=== PATIENT | male | born 1995 | race Caucasian/White ===

== ENCOUNTER 2021-07-05 16:20 | Emergency (ER) | payer SELFPAY ==
[~2021-07-05] VITALS: Ht 190.5 cm; Wt 136.0 kg
--- NOTE | 2021-07-05 17:39 | PHYS DOC ---
Past History Past Surgical History: No Surgical History General Adult EDM: Chief Complaint: SHORTNESS OF BREATH HPI: HPI: Patient is a 25-year-old male who presents with shortness of breath, cough for the last 2 weeks. Patient states that shortness of breath is worse with exertion. Patient states that symptoms have worsened the last couple of days. Patient denies fever. Denies taking anything at home to help with symptoms. Denies medical history. Review of Systems: Review of Systems: Constitutional: Denies fever or chills Eyes: Denies change in visual acuity HENT: Denies nasal congestion or sore throat Respiratory: Reports cough and shortness of breath Cardiovascular: Denies chest pain or edema GI: Denies abdominal pain, nausea, vomiting, bloody stools or diarrhea : Denies dysuria Musculoskeletal: Denies back pain or joint pain Integument: Denies rash Neurologic: Denies headache, focal weakness or sensory changes Endocrine: Denies polyuria or polydipsia Lymphatic: Denies swollen glands Psychiatric: Denies depression or anxiety Current Medications: Current Meds: Current Medications Medications (Trade) Dose Ordered Sig/Shahzad Start Time Stop Time Status Last Admin Dose Admin Sodium Chloride 1,000 ml @ 1,000 mls/hr 1X ONCE 07/05/21 17:45 07/05/21 18:44 UNV Allergies: Allergies: Allergies Coded Allergies Type Severity Reaction Last Updated Verified No Known Drug Allergies 07/05/21 No Physical Exam: PE: Constitutional: Well developed, well nourished, no acute distress, non-toxic appearance. [] HENT: Normocephalic, atraumatic, bilateral external ears normal, oropharynx moist, no oral exudates, nose normal. [] Eyes: PERRLA, EOMI, conjunctiva normal, no discharge. [] Neck: Normal range of motion, no tenderness, supple, no stridor. [] Cardiovascular:Heart rate regular rhythm, no murmur [] Lungs & Thorax: Bilateral breath sounds clear to auscultation [] Abdomen: Bowel sounds normal, soft, no tenderness, no masses, no pulsatile masses. [] Skin: Warm, dry, no erythema, no rash. [] Back: No tenderness, no CVA tenderness. [] Extremities: No tenderness, no cyanosis, no clubbing, ROM intact, no edema. [] Neurologic: Alert and oriented X 3, normal motor function, normal sensory function, no focal deficits noted. [] Psychologic: Affect normal, judgement normal, mood normal. [] Current Patient Data: Vital Signs: Vital Signs Date Time Temp Pulse Resp B/P (MAP) Pulse Ox O2 Delivery O2 Flow Rate FiO2 07/05/21 16:40 97.2 140 16 111/89 96 Room Air EKG: EKG: [] Sinus tachycardia. Heart rate [address] Currie at 1726 Radiology/Procedures: Radiology/Procedures: []Exam: CT of chest without contrast INDICATION: Shortness of breath TECHNIQUE: Sequential axial images through the chest obtained without IV contrast. Sagittal and coronal reformatted images were reconstructed from the axial data and reviewed. Exposure: One or more of the following in the visualized dose reduction techniques were utilized for this examination: 1. Automated exposure control 2. Adjustment of the MA and/or KV according to patient size 3. Use of iterative of reconstructive technique Comparisons: None FINDINGS: Visualized portions of the thyroid are unremarkable. No enlarged mediastinal lymph nodes are identified. Heart size is normal. No pericardial effusion. Thoracic aorta has a normal course and caliber. Pulmonary artery is not enlarged. Airways are patent. There is patchy areas of groundglass opacity noted in the left upper lobe. No suspicious lung nodules. No pleural effusion or thickening. Diffuse hepatic steatosis. No suspicious osseous lesions or acute fractures. IMPRESSION: Patchy areas of groundglass opacity noted at the left upper lobe favored to be infectious or inflammatory in etiology. Electronically signed by: Daljit Bowers MD (07/05/2021 6:14 PM) [facility] EXAMINATION: CTA Chest With IV contrast INDICATION:25 years, Male, shortness of breath, evaluate for pulmonary embolism. COMPARISON: None. TECHNIQUE: Spiral CTA was obtained from the jugular notch through the posterior costophrenic recess. 3-D MIPS, sagittal and coronal reformats were obtained. Exposure: One or more of the following individualized dose reduction techniques were utilized for this examination: 1. Automated exposure control 2. Adjustment of the mA and/or kV according to patient size 3. Use of iterative reconstruction technique. FINDINGS: LUNGS/PLEURA: Central airways are patent. Redemonstrated patchy areas of dense opacities in the middle lobe. No pleural effusion or pneumothorax. No suspicious pulmonary nodule.. MEDIASTINUM: Saddle pulmonary emboli in pulmonary trunk extends to bilateral main pulmonary arteries, occlusive in the right and nearly exclusive in the left pulmonary arteries. Multiple emboli extends to the segmental and subsegmental pulmonary arteries of all lobes. There is a flattening of the interventricular septum with enlarged RV/LV ratio measures about 2, consistent with right heart strain. Pulmonary rank is enlarged measures 3.9 cm, consistent with pulmonary arterial hypertension. No pathologic mediastinal or hilar adenopathy. The thoracic aorta is normal in caliber. No cardiomegaly. No pericardial effusion. No detectable calcified coronary atherosclerosis. The visualized thyroid and the esophagus are unremarkable. AXILLA/SOFT TISSUE: No supraclavicular or axillary adenopathy. Symmetric bilateral gynecomastia. UPPER ABDOMEN: The visualized upper abdomen appears unremarkable. BONES: No evidence of acute fractures or aggressive osseous lesions. IMPRESSION: 1. Extensive pulmonary embolism as described above, with findings consistent with right heart strain. RV/LV ratio is 2. 2. Enlarged pulmonary trunk measures 3.9 cm, consistent with pulmonary arterial hypertension. 3. Redemonstrated patchy areas of groundglass opacities in the left upper lobe, may represent infectious/inflammatory etiology or sequelae of pulmonary infarcts. Heart Score: C/O Chest Pain: No Risk Factors: Risk Factors: DM, Current or recent (<one month) smoker, HTN, HLP, family history of CAD, obesity. Risk Scores: Score 0 - 3: 2.5% MACE over next 6 weeks - Discharge Home Score 4 - 6: 20.3% MACE over next 6 weeks - Admit for Clinical Observation Score 7 - 10: 72.7% MACE over next 6 weeks - Early Invasive Strategies Course & Med Decision Making: Course & Med Decision Making Pertinent Labs and Imaging studies reviewed. (See chart for details) [] 25-year-old male presents with shortness of breath and cough for the last 2 weeks. Patient states symptoms are worse with exertion and improved with sitting. Patient states that symptoms have worsened the last couple of days. Patient's heart rates in the 140s upon arrival. Afebrile. Patient denies vaccination for Covid. Patient tested for Covid. CT chest ordered to rule out PE. CBC, CMP, lactic, cultures. EKG shows sinus tachycardia. Heart rate 127 bpm. Normal saline bolus given. WBC 17.5, lactic 2.0. Troponin is 0.038. Second liter bolus, NS started. CTA shows PEs bilaterally with right heart strain. Discussed case with Dr. Simon. Dr. Simon recommended admitting patient to watch for 24-48 hours at [facility]. Dr. Mas recommended the patient to be started on Lovenox at this time due to being hemodynamically stable. Discussed results with patient explained he would need to be admitted. I also spoke with Dr. Munoz who is willing to accept patient at [facility] for saddle PEs, pneumonia, PUI.. Patient is hemodynamically stable upon admission. Patient started on Rocephin and Zithromax. Patient report given to Dr. Mao at 2205. Nam Disclaimer: Nam Disclaimer: This electronic medical record was generated, in whole or in part, using a voice recognition dictation system. Departure Departure: Impression: Primary Impression: Pulmonary embolism Qualified Codes: I26.99 - Other pulmonary embolism without acute cor pulmonale Additional Impressions: Pneumonia Qualified Codes: J18.9 - Pneumonia, unspecified organism Person under investigation for COVID-19 Disposition: ADMITTED INPATIENT Admitting Physician: Erika Munoz Condition: STABLE Referrals: PCP,SATNAM (PCP) DEANA KING APRN Jul 05, 2021 17:39
[2021-07-05] MEDS ORDERED: IV NORMAL SALINE 1,000ML 1,000 ML IV ONE ×2 (17:45→20:00)
[2021-07-05 17:57] LABS: BASO # 0.1 x10^3/uL (0.0-0.2); BASO % 0 % (0-3); EOS % 0 % (0-3); HEMOGLOBIN 18.1 g/dL (13.0-17.5); LYMPH # 2.7 x10^3/uL (1.0-4.8); LYMPH % 15 % (24-48); MEAN CORPUSCULAR HEMOGLOBIN 33 pg (25-35); MEAN CORPUSCULAR HGB CONC 34 g/dL (31-37); MEAN CORPUSCULAR VOLUME 96 fL (79-100); MONO # 1.5 x10^3/uL (0.0-1.1); MONO % 8 % (0-9); NEUT # 13.2 x10^3uL (1.8-7.7); NEUT % 76 % (31-73); PLATELET COUNT 195 x10^3/uL (140-400); RED BLOOD COUNT 5.52 x10^6/uL (4.30-5.70); RED CELL DISTRIBUTION WIDTH 14.4 % (11.5-14.5); WHITE BLOOD COUNT 17.5 x10^3/uL (4.0-11.0)
[2021-07-05 18:03] LABS: GFR 91.8; POTASSIUM 4.6 mmol/L (3.5-5.1)
--- NOTE | 2021-07-05 18:16 | RAD ---
Exam: CT of chest without contrast INDICATION: Shortness of breath TECHNIQUE: Sequential axial images through the chest obtained without IV contrast. Sagittal and coron al reformatted images were reconstructed from the axial data and reviewed. Exposure: One or more of the following in the visualized dose reduction techniques were utilized for this examination: 1. Automated exposure control 2. Adjustment of the MA and/or KV according to patient size 3. Use of iterative of reconstructive technique Comparisons: None FINDINGS: Visualized portions of the thyroid are unremarkable. No enlarged mediastinal lymph nodes are identifi ed. Heart size is normal. No pericardial effusion. Thoracic aorta has a normal course and caliber. Pulmon meron artery is not enlarged. Airways are patent. There is patchy areas of groundglass opacity noted in the left upper lobe. No sofy picious lung nodules. No pleural effusion or thickening. Diffuse hepatic steatosis. No suspicious osseous lesions or acute fractures. IMPRESSION: Patchy areas of groundglass opacity noted at the left upper lobe favored to be infectious or inflamma tory in etiology. Electronically signed by: Daljit Bowers MD (07/05/2021 6:14 PM) [facility]
[2021-07-05 18:17] LABS: ALBUMIN 3.8 g/dL (3.4-5.0); TOTAL BILIRUBIN 4.2 mg/dL (0.2-1.0); TOTAL PROTEIN 7.6 g/dL (6.4-8.2)
--- NOTE | 2021-07-05 18:17 | EKG ---
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
[2021-07-05] MEDS ORDERED: IOHEXOL 350 MG/ML 100 ML VIAL. IV ONE (20:15)
[2021-07-05] MEDS ORDERED: CONTRAST GIVEN. MC PRN (20:15)
[2021-07-05 20:17] LABS: % LYMPHS 8 % (24-48); % MONOS 8 % (0-10); % SEGS 84 % (35-66); PLT ESTIMATE ADEQUATE (ADEQUATE)
--- NOTE | 2021-07-05 21:07 | RAD ---
EXAMINATION: CTA Chest With IV contrast INDICATION:25 years, Male, shortness of breath, evaluate for pulmonary embolism. COMPARISON: None. TECHNIQUE: Spiral CTA was obtained from the jugular notch through the posterior costophrenic recess. 3-D MIPS, sagittal and coronal reformats were obtained. Exposure: One or more of the following individualized dose reduction techniques were utilized for thi s examination: 1. Automated exposure control 2. Adjustment of the mA and/or kV according to patient size 3. Use of iterative reconstruction technique. FINDINGS: LUNGS/PLEURA: Central airways are patent. Redemonstrated patchy areas of dense opacities in the middl e lobe. No pleural effusion or pneumothorax. No suspicious pulmonary nodule.. MEDIASTINUM: Saddle pulmonary emboli in pulmonary trunk extends to bilateral main pulmonary arteries, occlusive in the right and nearly exclusive in the left pulmonary arteries. Multiple emboli extends to the segmental and subsegmental pulmonary arteries of all lobes. There is a flattening of the inter ventricular septum with enlarged RV/LV ratio measures about 2, consistent with right heart strain. Pu lmonary rank is enlarged measures 3.9 cm, consistent with pulmonary arterial hypertension. No pathologic mediastinal or hilar adenopathy. The thoracic aorta is normal in caliber. No cardiomega ly. No pericardial effusion. No detectable calcified coronary atherosclerosis. The visualized thyroid and the esophagus are unremarkable. AXILLA/SOFT TISSUE: No supraclavicular or axillary adenopathy. Symmetric bilateral gynecomastia. UPPER ABDOMEN: The visualized upper abdomen appears unremarkable. BONES: No evidence of acute fractures or aggressive osseous lesions. IMPRESSION: 1. Extensive pulmonary embolism as described above, with findings consistent with right heart strain. RV/LV ratio is 2. 2. Enlarged pulmonary trunk measures 3.9 cm, consistent with pulmonary arterial hypertension. 3. Redemonstrated patchy areas of groundglass opacities in the left upper lobe, may represent infecti ous/inflammatory etiology or sequelae of pulmonary infarcts. FOR INTERNAL CODING PURPOSES Critical result: Findings discussed with nurse practitioner FERNANDO at 07/05/2021 9:01 PM. RESULT CODE: (C) Electronically signed by: Steve Barrera MD (07/05/2021 9:04 PM) [facility]
[2021-07-05] MEDS ORDERED: ENOXAPARIN ** NOTE DOSE ** SYRINGE SQ ONE (22:00)
[2021-07-05] MEDS ORDERED: IV NORMAL SALINE 250ML 250 ML ONE (22:10)
[2021-07-05] MEDS ORDERED: AZITHROMYCIN 500 MG VIAL. IV ONE (22:10)
[2021-07-05] MEDS ORDERED: IV NORMAL SALINE 50ML 50 ML ONE (22:11)
[2021-07-05] MEDS ORDERED: cefTRIAXone SODIUM 1 GM VIAL ONE (22:11)
[2021-07-05] MEDS ORDERED: AZITHROMYCIN 500 MG in IV NORMAL SALINE 250ML 250 ML IV ONE (22:30)
[2021-07-06 01:42] VITALS: BP 128/77
--- NOTE | 2021-07-06 05:05 | EKG ---
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
--- NOTE | 2021-07-06 05:08 | EKG ---
[address] [address] Test Date: 2021-07-06 Test Time: 01:06:50 Pat Name: MEGHAN CAVAZOS Department: Room: Gender: M Clay Carman: MAYANK : 1995 Requested By: MATTI ORNELAS Order Number: [id number] Reading MD: Measurements Intervals [place] Rate: 120 P: 52 VA: 136 QRS: 256 QRSD: 92 T: -36 QT: 328 QTc: 469 Interpretive Statements SINUS TACHYCARDIA ABNORMAL RIGHT SUPERIOR AXIS DEVIATION S1,S2,S3 PATTERN LEFT ANTERIOR FASCICULAR BLOCK CONSIDER RIGHT VENTRICULAR HYPERTROPHY QRS(T) CONTOUR ABNORMALITY CONSIDER INFERIOR MYOCARDIAL DAMAGE T ABNORMALITY IN ANTERIOR LEADS RI6.02 Compared to ECG 07/05/2021 23:06:59 Left anterior fascicular block now present T-wave abnormality still present
== END 2021-07-06 01:55 | disposition short-term general hospital (02) ==
LOC: ER 16:25
DX: I26.99 Other pulmonary embolism without acute cor pulmonale (principal); J18.9 Pneumonia, unspecified organism; Z20.822 Contact with and (suspected) exposure to COVID-19
CPT/HCPCS: 36415; 71250; 71275; 80053; 83605; 84484; 85007; 85025; 85610; 85730; 87040; 87426; 93005; 96361; 96365; 96366; 96368; 96372; 99285; C9803; J0456; J0696; J1650; J7030; J7050; Q9967; U0003